=== PATIENT | female | born 1980 | race African-American/Black ===

== ENCOUNTER 2020-06-23 19:05 | Emergency (ER) | payer OTHER ==
--- NOTE | 2020-06-23 19:51 | ER Document Report ---
ED Medical Screen (RME) - General Chief Complaint: STD Exposure Stated Complaint: POSSIBLE STD EXPOSURE, EAR OBSTRUCTION Time Seen by Provider: 06/23/20 19:44 Primary Care Provider: COBY SOW MD [Primary Care Provider] - Follow up as needed Mode of Arrival: Ambulatory Information source: Patient Notes: 40-year-old female presented to ED for feeling like there is a cotton ball in her left ear. There is no cotton ball in her left ear. I did examine it there is nothing in there. She states she has felt a little dizzy days she thought that is what it was. She states she also needs to have an STD check in her urine. She states she has some odor down there that she does not like. I have ordered self swabs for culture GC chlamydia and wet mount and a clean urine. Patient has verbalized understanding and agreement with this treatment plan. Patient will have the started and and she will be seen by another provider for the results. I have greeted and performed a rapid initial assessment of this patient. A comprehensive ED assessment and evaluation of the patient, analysis of test results and completion of medical decision making process will be conducted by an additional ED providers. - Related Data Allergies/Adverse Reactions: No Known Allergies Allergy (Verified 08/06/13 21:19) Past Medical History - Past Medical History Cardiac Medical History: Reports: Hx Hypertension Denies: Hx Coronary Artery Disease, Hx Heart Attack Pulmonary Medical History: Reports: Hx Bronchitis Denies: Hx Asthma, Hx COPD, Hx Pneumonia, Hx Tuberculosis Neurological Medical History: Denies: Hx Cerebrovascular Accident, Hx Seizures Musculoskeltal Medical History: Denies Hx Arthritis Past Surgical History: Reports: Hx Section - x 2 - Immunizations Hx Diphtheria, Pertussis, Tetanus Vaccination: Yes Physical Exam - Vital signs Vitals: Temp Pulse Resp BP Pulse Ox 98.0 F 98 20 133/80 H 100 06/23/20 19:38 06/23/20 19:38 06/23/20 19:38 06/23/20 19:38 06/23/20 19:38 Course - Vital Signs Vital signs: Temp Pulse Resp BP Pulse Ox 98.0 F 98 20 133/80 H 100 06/23/20 19:38 06/23/20 19:38 06/23/20 19:38 06/23/20 19:38 06/23/20 19:38 Doctor's Discharge - Discharge Referrals: COBY SOW MD [Primary Care Provider] - Follow up as needed
[2020-06-23 20:16] LABS: BACTERIA (WET MOUNT) 4+ BACTERIA SEEN; EPITHELIALS (WET MOUNT) 3+ EPITHELIALS SEEN; T.VAGINALIS (WET MOUNT) NO TRICHOMONAS SEEN; WBCS (WET MOUNT) 1+ WBCS SEEN; YEAST (WET MOUNT) NO YEAST SEEN
[2020-06-23 20:18] LABS: APPEARANCE,URINE CLEAR; BILIRUBIN,URINE NEGATIVE (NEGATIVE); COLOR,URINE STRAW; GLUCOSE, URINE NEGATIVE (NEGATIVE); KETONES,URINE NEGATIVE (NEGATIVE); LEUKOCYTE ESTERASE,URINE NEGATIVE (NEGATIVE); NITRITE,URINE NEGATIVE (NEGATIVE); PROTEIN,URINE NEGATIVE (NEGATIVE); URINE SPECIFIC GRAVITY 1.015; UROBILINOGEN,URINE NEGATIVE mg/dL (<2.0)
[2020-06-23] MEDS ORDERED: CEFTRIAXONE INJ 250 MG VIAL IM ONE (21:12)
--- NOTE | 2020-06-23 21:22 | ER Document Report ---
ED GI/ - General Chief Complaint: STD Exposure Stated Complaint: POSSIBLE STD EXPOSURE, EAR OBSTRUCTION Time Seen by Provider: 06/23/20 19:44 Primary Care Provider: COBY SOW MD [ACTIVE STAFF] - Follow up as needed Mode of Arrival: Ambulatory Information source: Patient Notes: Patient is a 40-year-old female seen by facility of earlier with a complaint of possibly having an STD. Patient states she believes she has been exposed to STD panel:. States that she has a foul smell vaginally. It is been going on for approximately 3 days. Patient denies any medical history is currently taking no medications. Does not smoke drink or do drugs. Last menstrual period was on June 15. She denies any fever nausea vomiting or diarrhea. TRAVEL OUTSIDE OF THE [place] IN LAST 30 DAYS: No - HPI Patient complains to provider of: Vaginal discharge, Other Onset: Other - 3 days Timing/Duration: Gradual Quality of pain: Achy, Cramping Severity at maximum: Moderate Severity in ED: Moderate Pain Level: 3 Location: Vaginal Vaginal bleeding (Compared to normal period): None LMP: June 15, 2020 Sexual history: Active, Unprotected intercourse, STD exposure Associated symptoms: None Exacerbated by: Denies Relieved by: Denies Similar symptoms previously: No Recently seen / treated by doctor: No - Related Data Allergies/Adverse Reactions: No Known Allergies Allergy (Verified 08/06/13 21:19) Past Medical History - General Information source: Patient - Social History Smoking Status: Never Smoker Cigarette use (# per day): No Chew tobacco use (# tins/day): No Smoking Education Provided: No Frequency of alcohol use: None Drug Abuse: None Lives with: Family Family History: None, Reviewed & Not Pertinent - Past Medical History Cardiac Medical History: Reports: Hx Hypertension Denies: Hx Coronary Artery Disease, Hx Heart Attack Pulmonary Medical History: Reports: Hx Bronchitis Denies: Hx Asthma, Hx COPD, Hx Pneumonia, Hx Tuberculosis Neurological Medical History: Denies: Hx Cerebrovascular Accident, Hx Seizures Musculoskeletal Medical History: Denies Hx Arthritis Past Surgical History: Reports: Hx Section - x 2 - Immunizations Hx Diphtheria, Pertussis, Tetanus Vaccination: Yes Hx Pneumococcal Vaccination: 08/10/13 Review of Systems - Review of Systems Constitutional: No symptoms reported EENT: No symptoms reported Cardiovascular: No symptoms reported Respiratory: No symptoms reported Gastrointestinal: No symptoms reported Genitourinary: No symptoms reported Female Genitourinary: See HPI, Vaginal discharge, Vaginal odor Musculoskeletal: No symptoms reported Skin: No symptoms reported Hematologic/Lymphatic: No symptoms reported Neurological/Psychological: No symptoms reported -: Yes All other systems reviewed and negative Physical Exam - Vital signs Vitals: Temp Pulse Resp BP Pulse Ox 98.0 F 98 20 133/80 H 100 06/23/20 19:38 06/23/20 19:38 06/23/20 19:38 06/23/20 19:38 06/23/20 19:38 Interpretation: Hypertensive - Notes Notes: PHYSICAL EXAMINATION: GENERAL: Well-appearing, well-nourished and in no acute distress. HEAD: Atraumatic, normocephalic. NECK: Normal range of motion, supple without lymphadenopathy LUNGS: Breath sounds clear to auscultation bilaterally and equal. No wheezes rales or rhonchi. HEART: Regular rate and rhythm without murmurs ABDOMEN: Soft, nontender, nondistended abdomen. No guarding, no rebound. No masses appreciated. Female : deferred/patient refused pelvic exam NEUROLOGICAL: . Normal speech, normal gait. Normal sensory, motor exams PSYCH: Normal mood, normal affect. SKIN: Warm, Dry, normal turgor, no rashes or lesions noted. Course - Re-evaluation Re-evalutation: 06/23/20 23:05 I offered patient pelvic exam she refused. She did not want to wait for her results of the chlamydia and gonorrhea she just wanted to be treated. She was received a Rocephin shot and doxycycline and Flagyl outpatient. Been instructed to have no sexual intercourse while she is on antibiotics and for 1 week after. Also she will call them and get the information about her gonorrhea chlamydia test the first of the week. And if it is positive she will have her partner also treated. - Vital Signs Vital signs: Temp Pulse Resp BP Pulse Ox 98.0 F 82 18 133/86 H 100 06/23/20 19:38 06/23/20 21:23 06/23/20 21:23 06/23/20 21:23 06/23/20 21:23 - Laboratory Laboratory results interpreted by me: 06/23/20 19:55 Urine Blood SMALL H Discharge - Discharge Clinical Impression: Exposure to STD Condition: Stable Disposition: HOME, SELF-CARE Instructions: Chlamydia ([facility]), Gonorrhea ([facility]) Additional Instructions: Home and take the medicine until completion. As we discussed you can contact medical records on Friday or go in your patient portal and check the results yourself. If they are positive you will need to have your partner also treated before you have any kind of intercourse. You must complete your entire antibiotic regime and no intercourse until after completion of the treatment. She given concerns or problems return to ER for reevaluation. Prescriptions: Metronidazole [Flagyl 500 mg Tablet] 500 mg PO Q6H #28 tablet Doxycycline Hyclate [Morgidox] 100 mg PO BID #20 capsule Forms: Elevated Blood Pressure Referrals: COBY SOW MD [ACTIVE STAFF] - Follow up as needed
[2020-06-23 21:29] VITALS: BP 133/86
[2020-06-23 21:43] LABS: CHLAM PCR NOT DETECTED (NOT DETECT)
== END 2020-06-23 21:38 | disposition home or self-care (01) ==
LOC: ER 19:05
DX: Z20.2 Contact with and (suspected) exposure to infections with a predominantly sexual mode of transmission (principal); R10.2 Pelvic and perineal pain; N89.8 Other specified noninflammatory disorders of vagina; I10 Essential (primary) hypertension
CPT/HCPCS: 99284; 96372; 87086; 87210; 81001; 87491; 87591; J0696